=== PATIENT | male | born 2000 | race Caucasian/White ===

== ENCOUNTER 2018-04-18 12:18 | Emergency (ER) | payer OTHER ==
[2018-04-18 13:25] LABS: KETONE, URINE AUTO RFX NEGATIVE (NEGATIVE); LEUKOCYTE ESTERASE UR AUTO RFX NEGATIVE (NEGATIVE); NITRITE, URINE AUTO RFX NEGATIVE (NEGATIVE); RBC, URINE AUTO RFX 2 /HPF (0-3); SPECIFIC GRAVITY UR AUTO RFX 1.012 (1.002-1.035); SQUAM EPITHELIAL CELL UR AURFX 0 /HPF (0-6); WBC, URINE AUTO RFX 0 /HPF (0-3)
[2018-04-18 16:03] LABS: CHLAMYDIA DNA AMPLIFICATION NEGATIVE (NEGATIVE); GC DNA AMPLIFICATION NEGATIVE (NEGATIVE)
== END 2018-04-18 14:25 | disposition home or self-care (01) ==
LOC: M ED 12:18
DX: S70.01XA Contusion of right hip, initial encounter (principal); S20.211A Contusion of right front wall of thorax, initial encounter; W20.8XXA Other cause of strike by thrown, projected or falling object, initial encounter; Y92.099 Unspecified place in other non-institutional residence as the place of occurrence of the external cause; Y93.89 Activity, other specified; Y99.9 Unspecified external cause status; F41.9 Anxiety disorder, unspecified
CPT/HCPCS: 71101